=== PATIENT | male | born 1975 | race African-American/Black ===

== ENCOUNTER 2025-04-26 23:43 | Emergency (ER) | payer OTHER, MEDICAID ==
[~2025-04-26] VITALS: Ht 177.8 cm; Wt 86.0 kg
[2025-04-26 23:56] VITALS: O2SAT 100
[2025-04-27] MEDS: ACETAMINOPHEN 325MG TABLET PO ONE
[2025-04-27] MEDS: MORPHINE SULFATE 2 MG/ML INJ (NOT FOR IM USE) IV ONE (01:56)
[2025-04-27] MEDS: ACETAMINOPHEN 1000MG/100ML 100 ML IV ONE (01:56)
[2025-04-27] MEDS ORDERED: IBUP-2029 MT (04:40)
[2025-04-27 06:01] VITALS: BP 104/76; PULSE 66; RESP 12; TEMP 36.6; O2SAT 99
== END 2025-04-27 06:01 | disposition home or self-care (01) ==
LOC: ER 23:43
DX: S60.511A Abrasion of right hand, initial encounter (principal); S80.811A Abrasion, right lower leg, initial encounter; M79.641 Pain in right hand; M79.631 Pain in right forearm; M25.561 Pain in right knee; V87.8XXA Person injured in other specified noncollision transport accidents involving motor vehicle (traffic), initial encounter; Y93.55 Activity, bike riding; Y92.89 Other specified places as the place of occurrence of the external cause; Y99.8 Other external cause status
CPT/HCPCS: 73090; 73120; 73560; 29125; 99285; 96365; 96375; J2270; Z7610; A6449; A4565; J0131